=== PATIENT | female | born 1985 ===

== ENCOUNTER 2021-05-12 04:03 | Inpatient (IN) ==
[2021-05-12] MEDS ORDERED: Famotidine 20 MG/2 ML VIAL IVP PRN (04:11)
[2021-05-12] MEDS ORDERED: Lidocaine 1% 20 ML MDV INFILT PRN (04:11)
[2021-05-12] MEDS ORDERED: Metoclopramide 10 MG/2 ML VIAL IVP PRN (04:11)
[2021-05-12] MEDS ORDERED: *HR* Nalbuphine 10 MG/ML AMPUL IV PRN (04:11)
[2021-05-12] MEDS ORDERED: Naloxone 0.4 MG/ML INJ IVP PRN ×2 (04:11→08:15)
[2021-05-12] MEDS ORDERED: Oxytocin 20 units/ LR 1000 mL 20 UNIT/1,000 ML BAG IVC SCH ×2 (04:15→18:45)
[2021-05-12] MEDS ORDERED: Penicillin G Potassium 5,000,000 UNIT in 0.9 % Sodium Chloride Mini Bag 100 ML IVPB ONE (05:00)
[2021-05-12] MEDS: Ringers Solution, Lactated 1,000 ML IVC SCH ×2 (05:34→10:49)
[2021-05-12 05:57] LABS: Basophils % 0.4 %; Eosinophils # 0.1 K/mcL (0.0-0.6); Hematocrit 37.5 % (35.3-44.9); Hemoglobin 12.6 g/dL (11.5-15.4); Immature Granulocytes % 0.3 % (0-4); Lymphocytes # 2.9 K/mcL (0.6-4.6); Lymphocytes % 41.8 %; Mean Corpuscular HGB Conc 33.6 g/dL (31.6-35.5); Mean Corpuscular Hemoglobin 30.1 pg (28.0-33.3); Mean Corpuscular Volume 89.5 fL (83.0-100.0); Mean Platelet Volume 11.2 fL (9.4-12.4); Monocytes # 0.6 K/mcL (0.0-1.3); Monocytes % 8.7 %; Neutrophils # 3.3 K/mcL (1.6-8.9); Platelet Count 243 K/mcL (140-400); Red Blood Count 4.19 M/mcL (3.82-4.97); Red Cell Distribution Width 14.3 % (11.5-14.5); Segmented Neutrophils % 47.8 %
[2021-05-12 06:03] LABS: Amphetamine Screen,Urine Negative ng/mL (Cutoff=1000); Barbiturate Screen,Urine Negative ng/mL (Cutoff=200); Benzodiazepines Screen,Urine Negative ng/mL (Cutoff=200); Cannabinoid Screen,Urine Negative ng/mL (Cutoff = 50); Cocaine Screen,Urine Negative ng/mL (Cutoff= 300); Creatinine,Urine 47 mg/dL; Opiate Screen,Urine Negative ng/mL (Cutoff=300); Phencyclidine Screen,Urine Negative ng/mL (Cutoff=25); Protein/Creatinine Ratio,Urine 0.75 mg/mg (0.00-0.20)
[2021-05-12 06:05] LABS: Bilirubin,Urine Negative (Negative); Blood,Urine Moderate (Negative); Clarity,Urine Clear (Clear); Color,Urine Colorless (Yellow); Glucose,Urine (UA) Normal (Normal); Ketones,Urine Negative (Negative); Leukocyte Esterase,Urine Negative (Negative); Nitrite,Urine Negative (Negative); PH,Urine 6.5 pH Units (5.0-8.0); Protein,Urine Trace mg/dL (Neg-Trace); Specific Gravity,Urine 1.009 (1.010-1.025); Squamous Epithelial Cell,Urine Few per hpf (None-Few); Urobilinogen,Urine Normal (Normal); WBC,Urine 0-3 per hpf (0-3)
[2021-05-12 06:18] LABS: Alanine Aminotransferase 10 Units/L (7-52); Aspartate Amino Transferase 14 Units/L (13-39); BUN/Creatinine Ratio 13 (6-26); Blood Urea Nitrogen 8 mg/dL (6-20); Glucose 79 mg/dL (70-105); Lactate Dehydrogenase 153 Units/L (140-271); Uric Acid 6.4 mg/dL (2.3-7.6); eGFR For African Americans > 60 (> 60); eGFR For Non-African Americans > 60 (> 60)
[2021-05-12 06:27] LABS: Influenza A PCR Negative (Negative); Influenza B PCR Negative (Negative); Resp. Syncytial Virus PCR Negative (Negative)
[2021-05-12 06:32] LABS: SARS-CoV-2 by PCR (In House) Negative (Negative)
[2021-05-12] MEDS ORDERED: Epidural Premix (fent/bupiv) 110 ML EP SCH (08:15)
[2021-05-12] MEDS ORDERED: *HR* FentaNYL (PF) 100 MCG/2 ML VIAL EP ONE (08:15)
[2021-05-12] MEDS ORDERED: Ondansetron 4 MG/2 ML VIAL IVP PRN (08:15)
[2021-05-12] MEDS ORDERED: Ropivacaine/PF 0.2% 20 ML VIAL EP ONE (08:15)
[2021-05-12] MEDS ORDERED: EPHEDrine 50 MG/ML VIAL IVP PRN (08:15)
[2021-05-12] MEDS: Penicillin G Potassium 2,500,000 UNIT/105 ML MLS IVPB SCH ×2 (09:28→13:24)
[2021-05-12] MEDS ORDERED: Calcium Gluconate 1,000 MG/10 ML VIAL IVP PRN (15:33)
[2021-05-12] MEDS ORDERED: Magnesium Sulf 20 gm/SW 500mL 20 GM/500 ML IV.SOLN IVC SCH (15:45)
[2021-05-12] MEDS ORDERED: NIFEdipine Immed Rel 10 MG CAPSULE PO ONE (18:23)
[2021-05-12] MEDS ORDERED: Lanolin 7 G OINT...G. TP PRN (18:45)
[2021-05-12] MEDS ORDERED: Ondansetron ODT 4 MG TAB.RAPDIS SL PRN (18:45)
[2021-05-12] MEDS ORDERED: Calcium Gluconate 1,000 MG/10 ML VIAL ONE (20:24)
[2021-05-12] MEDS: Ibuprofen 600 MG TABLET PO SCH (20:35)
[2021-05-12] MEDS: Acetaminophen 325 MG TABLET PO SCH (20:35)
[2021-05-13] MEDS: Acetaminophen 325 MG TABLET PO SCH ×3 (03:24→19:27)
[2021-05-13] MEDS: Ibuprofen 600 MG TABLET PO SCH ×3 (03:25→19:27)
[2021-05-13] MEDS ORDERED: Magnesium Sulf 20 gm/SW 500mL 20 GM/500 ML IV.SOLN IVC SCH (03:37)
[2021-05-13] MEDS ORDERED: Ringers Solution, Lactated 1,000 ML ONE ×2 (03:47→11:57)
[2021-05-13] MEDS: Ringers Solution, Lactated 1,000 ML IVC SCH ×2 (03:49→12:00)
[2021-05-13] MEDS ORDERED: NIFEdipine XL (24 HR) 30 MG TAB.ER.24 PO SCH (09:00)
[2021-05-13] MEDS ORDERED: Prenatal Vit/FA 1 EACH TABLET PO SCH (09:00)
[2021-05-14] MEDS: Acetaminophen 325 MG TABLET PO SCH (01:00)
[2021-05-14] MEDS: Ibuprofen 600 MG TABLET PO SCH (01:30)
[2021-05-14 07:42] VITALS: BP 127/90; TEMP 98.1; O2SAT 96
[2021-05-14 09:45] VITALS: PULSE 82
== END 2021-05-14 12:26 | disposition home or self-care (01) | DRG 807 ==
LOC: 1NENULAB 04:03 → 1NENUOBS 19:43
PROVIDERS: ADMIT Obstetrics & Gynecology; ATTEND Obstetrics & Gynecology